=== PATIENT | male | born 1990 | race Caucasian/White ===

== ENCOUNTER 2016-11-21 14:28 | Emergency (ER) | payer BC ==
[2016-11-21 17:07] VITALS: BP 139/79
--- NOTE | 2016-11-21 17:24 | UC ---
Skin Complaint HPI - HPI Summary HPI Summary: was seen in ER last night for cuts on right hand, the lac on palm was sewn up but the one on the knuckle was not. he is unable to bend his finger and it is swollen, placed on keflex in the ER. feels like there is something in the right 2nd finger. - History of Current Complaint Chief Complaint: UCUpperExtremity Time Seen by Provider: 11/21/16 16:52 Stated Complaint: RIGHT HAND INJURY Hx Obtained From: Patient Onset/Duration: Sudden Onset, Lasting Hours Skin Exposure Onset/Duration: Hours Ago Timing: Constant Onset Severity: Moderate Current Severity: Moderate Pain Intensity: 4 Pain Scale Used: 0-10 Numeric Location: Discrete, Hand (Right) Character: Swelling Aggravating: Nothing Alleviating: Nothing Associated Signs & Symptoms: Positive: Negative - Allergy/Home Medications Allergies/Adverse Reactions: Allergies Allergy/AdvReac Type Severity Reaction Status Date / Time Bee Venom Allergy Severe Swelling Verified 05/22/16 18:13 Of Face,Lips,& Throat Amoxicillin [From Augmentin] AdvReac Intermediate Vomiting Verified 05/22/16 18: 13 Clavulanic Acid AdvReac Intermediate Vomiting Verified 05/22/16 18:13 [From Augmentin] Home Medications: Home Medications Ibuprofen [Ibuprofen 200 MG] 200 mg PO Q6HR PRN 11/21/16 [History Confirmed 08/27] Review of Systems Skin: Other - 3 lacerations Eyes: Negative ENT: Negative Respiratory: Negative Cardiovascular: Negative Gastrointestinal: Negative Genitourinary: Negative Motor: Negative Neurovascular: Negative Musculoskeletal: Arthralgia - right 2nd finger Neurological: Negative Psychological: Negative All Other Systems Reviewed And Are Negative: Yes PMH/Surg Hx/FS Hx/Imm Hx Previously Healthy: Yes Respiratory History Of: Comment Only: Asthma - childhood - Surgical History Surgical History: Yes Surgery Procedure, Year, and Place: cauliflower ear drainage - Family History Family History: no known cardio-vascular disorders - Social History Alcohol Use: None Substance Use Type: None Smoking Status (MU): Never Smoked Tobacco Physical Exam Triage Information Reviewed: Yes Appearance: Well-Appearing, Well-Nourished, Pain Distress Vital Signs: Initial Vital Signs Temp 98 F 11/21/16 17:00 Pulse 83 11/21/16 17:00 Resp 16 11/21/16 17:00 BP 139/79 11/21/16 17:00 Pulse Ox 100 11/21/16 17:00 Vital Signs Reviewed: Yes Eye Exam: Normal Eyes: Positive: Conjunctiva Clear ENT Exam: Normal ENT: Positive: Normal ENT inspection, Hearing grossly normal, Pharynx normal, TMs normal Dental Exam: Normal Neck exam: Normal Neck: Positive: Supple, Nontender, No Lymphadenopathy Respiratory Exam: Normal Respiratory: Positive: Chest non-tender, Lungs clear, Normal breath sounds Cardiovascular Exam: Normal Cardiovascular: Positive: RRR, No Murmur, Pulses Normal Abdominal Exam: Normal Abdomen Description: Positive: Nontender, No Organomegaly, Soft Bowel Sounds: Positive: Present Musculoskeletal: Positive: Strength Limited @, ROM Limited @ - right 2nd finger, Neurological Exam: Normal Neurological: Positive: Alert, Muscle Tone Normal Skin: Positive: Other - lac on palm with sutures in place lac on 2nd finger scabbed over, swollen and erythemic small lac on 3rd finger. Laceration Repair - Laceration Repair 1 Description: Irregular : No Repair Necessary Laceration Size After Repair: Length (cm) - 2 cm Modified For Repair: Yes - soaked and debris removed Cleansing Completed Via Routine Prep: Yes Irrigation With Pressure Irrigation Device: No Closure Material: SteriStrips - 5 Closure Method: Single Layer Suture Of: Skin Course/Dx - Course Course Of Treatment: hx obtained, wounds cleansed and steri striped. patient is on an antibiotic from his trip to ER, xray of finger obtained to R/o FB. wound cleansed steri stripped with 5 stirps and finger splint applied. - Differential Diagnoses - Skin Complaint Differential Diagnoses: Allergic Reaction, Cellulitis - Diagnoses Provider Diagnoses: laceration on finger Discharge - Discharge Plan Condition: Stable Disposition: HOME Patient Education Materials: Care For Your Absorbable Stitches (ED) Additional Instructions: keep area clean and dry, continue taking your antibioitic as prescribed. Follow up with any signs of infections as listed in the hand out.
--- NOTE | 2016-11-21 18:19 | RAD ---
INDICATION: Laceration to the dorsal aspect of the right index finger proximal interphalangeal joint. TECHNIQUE: 3 views of the right index finger were obtained. FINDINGS: The bones are normal alignment. Joint spaces appear maintained. No fracture is seen. There is no radiographically apparent foreign body seen overlying the site of laceration. IMPRESSION: NO RADIOGRAPHIC EVIDENCE OF ACUTE BONY INJURY OR SUBCUTANEOUS FOREIGN BODY INVOLVING THE RIGHT INDEX FINGER.
== END 2016-11-21 18:39 | disposition home or self-care (01) ==
LOC: UCCORT 14:28
DX: S61.210A Laceration without foreign body of right index finger without damage to nail, initial encounter (principal); X58.XXXA Exposure to other specified factors, initial encounter; Y92.9 Unspecified place or not applicable; Z88.1 Allergy status to other antibiotic agents
CPT/HCPCS: 73140; 99201; G0463

== ENCOUNTER 2017-06-01 12:21 | Emergency (ER) | payer SELFPAY ==
[2017-06-01 13:09] VITALS: BP 103/65
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
== END 2017-06-01 14:20 | disposition home or self-care (01) ==
LOC: UCCORT 12:21
DX: S13.9XXA Sprain of joints and ligaments of unspecified parts of neck, initial encounter (principal); V43.52XA Car driver injured in collision with other type car in traffic accident, initial encounter; Y93.89 Activity, other specified; Y92.410 Unspecified street and highway as the place of occurrence of the external cause; Z88.1 Allergy status to other antibiotic agents; Z91.030 Bee allergy status
CPT/HCPCS: 72050; 99212; G0463

== ENCOUNTER 2019-03-08 10:12 | Emergency (ER) | payer OTHER ==
[2019-03-08 10:50] VITALS: BP 116/73
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
[2019-03-08] MEDS ORDERED: Ketorolac INJ* 30 MG/ML 1 ML VIAL IM ONE (11:15)
== END 2019-03-08 11:50 | disposition home or self-care (01) ==
LOC: UCCORT 10:12
DX: S16.1XXA Strain of muscle, fascia and tendon at neck level, initial encounter (principal); X50.0XXA Overexertion from strenuous movement or load, initial encounter
CPT/HCPCS: 96372; 99213; G0463; J1885